=== PATIENT | female | born 1965 | race Caucasian/White ===

== ENCOUNTER → 2018-05-02 | Outpatient (CLI) | payer OTHER ==
[~2018-05-02] MED LIST: ALBUMIN HUMAN 25%, 25GM/100ML ONE; LIDOCAINE-MPF 1%, 5ML ONE
== END | disposition home or self-care (01) ==
LOC: RAD 07:48
PROVIDERS: ATTEND Internal Medicine
DX: K70.11 Alcoholic hepatitis with ascites (principal)
CPT/HCPCS: 49083; 87070; 87205; 89051; P9047

== ENCOUNTER 2019-12-02 07:15 | Inpatient (IN) | payer OTHER ==
[~2019-12-02] VITALS: Ht 165.1 cm; Wt 64.4 kg
[2019-12-02] MEDS ORDERED: SODIUM CHLORIDE FLUSH 10ML SYR IVF ONE (07:30)
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
[2019-12-02] MEDS ORDERED: ALPR2TAB2 PO (07:53)
[2019-12-02] MEDS ORDERED: METO2.5T PO (07:53)
[2019-12-02] MEDS ORDERED: NABU500T PO (07:53)
[2019-12-02] MEDS ORDERED: HYDR-826 PO (07:53)
[2019-12-02] MEDS ORDERED: FURO40TA6 PO (07:53)
[2019-12-02] MEDS ORDERED: FLUO20CA23 PO (07:53)
--- NOTE | 2019-12-02 08:21 | NUR ---
EKG DONE, LICENSED PESTICIDE APPLICATOR PLACED.
--- NOTE | 2019-12-02 08:26 | NUR ---
PT GOING TO CT AT THIS TIME.
[2019-12-02] MEDS ORDERED: CEFTRIAXONE PMX 1GM/50ML 50 ML IV ONE (08:30)
[2019-12-02 09:04] LABS: INTERNATIONAL NORMALIZED RATIO 1.16 (0.93-1.1)
[2019-12-02] MEDS ORDERED: LIDOCAINE 1%, 10ML ONE (09:18)
--- NOTE | 2019-12-02 09:26 | NUR ---
PT GOING TO IR AT THIS TIME.
[2019-12-02 09:29] LABS: BASOPHILS % (AUTO) 2 % (0-1); EOSINOPHILS % (AUTO) 3 % (1-7); LYMPHOCYTES % (AUTO) 15 % (22-44); MEAN CORPUSCULAR HEMOGLOBIN 25.3 pg (27.0-34.8); MEAN CORPUSCULAR HGB CONC 31.5 g/dL (32.4-35.8); MEAN PLATELET VOLUME 9.7 fL (7.4-10.4); MONOCYTES % (AUTO) 15 % (2-9); NEUTROPHILS % (AUTO) 66 % (42-75); PLATELET COUNT 88 x10^3/uL (130-400); RED BLOOD COUNT 3.85 x10^6/uL (3.82-5.3); RED CELL DISTRIBUTION WIDTH 18.3 % (9.6-15.2)
[2019-12-02 09:32] LABS: MD MORPH REVIEW ONLY
[2019-12-02 09:33] LABS: ANISOCYTOSIS 1+; HYPOCHROMIA 1+; OVALOCYTES 1+; POLYCHROMASIA 1+
[2019-12-02 09:34] LABS: <PLATELET ESTIMATE> DECREASED; <PLT MORPHOLOGY> NORMAL PLT MORPH
--- NOTE | 2019-12-02 09:44 | NUR ---
ABLE TO CALL GERARDO AND GET CONCENT FOR PROCEDURE OVER PHONE. CONSENT DOUBLE VERIFIED WITH DIVORCE LAWYER. CALLED IR TO INFORM THEM CONSENTED TO PROCEDURE
[2019-12-02 09:58] LABS: ANION GAP 8 mmol/L (5-15); CALCIUM 9.6 mg/dL (8.5-10.1); CHLORIDE 104 mmol/L (98-107); CREATININE 0.56 mg/dL (0.55-1.02)
[2019-12-02 09:59] LABS: ALANINE AMINOTRANSFERASE 24 U/L (12-78); ALBUMIN 2.8 g/dL (3.4-5.0)
[2019-12-02 10:01] LABS: ALKALINE PHOSPHATASE 140 U/L (45-117); BILIRUBIN,TOTAL 2.6 mg/dL (0.2-1.0)
[2019-12-02] MEDS ORDERED: ONDANSETRON 2MG/ML, 2ML ONE (10:51)
[2019-12-02] MEDS ORDERED: POTASSIUM CHLORIDE 40 MEQ in SODIUM CHLORIDE 0.9% 500 ML IV ONE ×2 (11:00→13:00)
--- NOTE | 2019-12-02 11:20 | NUR ---
ATTEMPTED TO STRAIGHT CATH PT WITH ONE PERSON ASSIST. UNABLE TO GET ANY URINE OUT.
[2019-12-02] MEDS: LACTULOSE 20 GM/30 ML UDC PO SCH (11:32)
--- NOTE | 2019-12-02 12:37 | NUR ---
ABLE TO ASSIST PT TO BEDSIDE COMMODE WITH REPEATED INSTRUCTION. PT ABLE TO VOID. URINE SAMPLE COLLECTED, SENT TO LAB. PT CONFUSES EASILY AND HAS HARD TIME COMPLETING MULTI STEP INSTRUCTIONS. PT NOW BACK IN BED RESTING WITH EYES CLOSED. BILAT BEDRAILS UP.
[2019-12-02] MEDS ORDERED: CEFTRIAXONE PMX 1GM/50ML 50 ML ONE (12:39)
[2019-12-02 12:41] LABS: MICROSCOPIC NOT IND
[2019-12-02] MEDS ORDERED: SODIUM CHLORIDE FLUSH 10ML SYR IVF PRN (13:00)
[2019-12-02 13:03] LABS: CELLS COUNTED 56
[2019-12-02] MEDS ORDERED: DOCUSATE 100 MG CAPSULE PO PRN (13:30)
[2019-12-02] MEDS ORDERED: FUROSEMIDE 20 MG/2 ML IV ONE (13:30)
[2019-12-02] MEDS ORDERED: LORazepam 2 MG/ML, 1ML IVPush PRN (13:30)
[2019-12-02] MEDS ORDERED: LORazepam 1MG TABLET PO PRN (13:30)
[2019-12-02 13:45] LABS: SALICYLATE LEVEL < 1.7 mg/dL (2.8-20.0)
[2019-12-02 13:51] VITALS: BP 95/58
[2019-12-02 14:11] VITALS: BP 95/58
[2019-12-02 14:13] LABS: AMPHETAMINE SCREEN, URINE Negative (Negative); BARBITURATE SCREEN, URINE Negative (Negative); BENZODIAZEPINE SCREEN, URINE Negative (Negative); CANNABINOID SCREEN, URINE Negative (Negative); COCAINE SCREEN, URINE Negative (Negative); METHADONE SCREEN, URINE Negative (Negative); OPIATE SCREEN, URINE Negative (Negative)
[2019-12-02] MEDS: LACTULOSE 10 GM/15 ML UDC PO SCH ×2 (16:55→20:59)
[2019-12-02] MEDS: THIAMINE 100MG TABLET PO/NG SCH (16:55)
[2019-12-02] MEDS: POTASSIUM CHLORIDE 20 MEQ TAB.ER.PRT PO SCH (18:20)
[2019-12-02 20:21] VITALS: BP 106/64
[2019-12-03 00:41] VITALS: BP 93/61
[2019-12-03 06:34] LABS: MEAN CORPUSCULAR HEMOGLOBIN 25.5 pg (27.0-34.8); MEAN CORPUSCULAR HGB CONC 31.8 g/dL (32.4-35.8); MEAN PLATELET VOLUME 9.9 fL (7.4-10.4); PLATELET COUNT 93 x10^3/uL (130-400); RED BLOOD COUNT 3.64 x10^6/uL (3.82-5.3); RED CELL DISTRIBUTION WIDTH 18.6 % (9.6-15.2)
[2019-12-03 06:43] LABS: ALANINE AMINOTRANSFERASE 22 U/L (12-78); ALBUMIN 2.6 g/dL (3.4-5.0); ANION GAP 6 mmol/L (5-15); CALCIUM 9.3 mg/dL (8.5-10.1); CHLORIDE 107 mmol/L (98-107); CREATININE 0.53 mg/dL (0.55-1.02)
[2019-12-03 06:46] LABS: ALKALINE PHOSPHATASE 124 U/L (45-117); BILIRUBIN,TOTAL 2.2 mg/dL (0.2-1.0); TOTAL PROTEIN 5.6 g/dL (6.4-8.2)
[2019-12-03] MEDS ORDERED: POTASSIUM PHOSPHATE 44 MEQ in SODIUM CHLORIDE 0.9% 500 ML IV ONE (07:00)
[2019-12-03 07:28] VITALS: BP 103/64
[2019-12-03] MEDS ORDERED: PANTOPRAZOLE 40 MG IV IVPush SCH (07:30)
[2019-12-03] MEDS: LACTULOSE 10 GM/15 ML UDC PO SCH ×3 (07:38→20:44)
[2019-12-03] MEDS: MULTIVITAMIN 1 TABLET PO SCH (07:39)
[2019-12-03] MEDS: FUROSEMIDE 40 MG TABLET PO SCH (07:39)
[2019-12-03] MEDS: LACTULOSE 20 GM/30 ML UDC PO SCH (07:39)
[2019-12-03] MEDS: THIAMINE 100MG TABLET PO/NG SCH (07:39)
[2019-12-03] MEDS: FOLIC ACID 1 MG TABLET PO SCH (07:39)
[2019-12-03] MEDS: FLUOXETINE HCL 20 MG CAPSULE PO SCH (07:39)
[2019-12-03] MEDS: METOLAZONE 2.5 MG TABLET PO SCH (07:39)
[2019-12-03] MEDS: POTASSIUM CHLORIDE 20 MEQ TAB.ER.PRT PO SCH (07:40)
[2019-12-03 07:53] LABS: MD YES
[2019-12-03 07:55] LABS: <PLATELET ESTIMATE> DECREASED; <PLT MORPHOLOGY> NORMAL PLT MORPH; ANISOCYTOSIS 1+; BASOS#(MANUAL) 0.13 x10^3/uL (0-0.1); BASOS% (MANUAL) 3 % (0-1); EOS#(MANUAL) 0.35 x10^3/uL (0.0-0.4); EOS% (MANUAL) 8 % (1-7); HYPOCHROMIA 1+; LYMPH#(MANUAL) 1.28 x10^3/uL (1-3.4); LYMPHS% (MANUAL) 29 % (22-44); MONOS#(MANUAL) 0.44 x10^3/uL (0.3-2.7); MONOS% (MANUAL) 10 % (2-9); OVALOCYTES 1+; POLYCHROMASIA 1+; SEGS% (MANUAL) 50 % (42-75)
[2019-12-03 12:55] VITALS: BP 109/68
[2019-12-03] MEDS: CEFTRIAXONE PMX 1GM/50ML 50 ML IV SCH (13:28)
[2019-12-03] MEDS ORDERED: POTASSIUM CHLORIDE 40 MEQ in SODIUM CHLORIDE 0.9% 500 ML IV ONE (14:00)
[2019-12-03] MEDS ORDERED: POTASSIUM CHLORIDE 20 MEQ TAB.ER.PRT PO SCH (17:00)
[2019-12-03 18:43] VITALS: BP 99/64
[2019-12-04 02:00] VITALS: BP 96/61
[2019-12-04 05:45] LABS: BASOPHILS % (AUTO) 2 % (0-1); EOSINOPHILS % (AUTO) 5 % (1-7); LYMPHOCYTES % (AUTO) 14 % (22-44); MEAN CORPUSCULAR HEMOGLOBIN 25.5 pg (27.0-34.8); MEAN PLATELET VOLUME 9.3 fL (7.4-10.4); MONOCYTES % (AUTO) 15 % (2-9); NEUTROPHILS % (AUTO) 64 % (42-75); PLATELET COUNT 94 x10^3/uL (130-400); RED BLOOD COUNT 3.88 x10^6/uL (3.82-5.3); RED CELL DISTRIBUTION WIDTH 18.9 % (9.6-15.2)
[2019-12-04 05:52] LABS: MD NO
[2019-12-04 05:57] LABS: CHLORIDE 107 mmol/L (98-107)
[2019-12-04] MEDS ORDERED: PANTOPRAZOLE 40 MG IV IVPush SCH (06:00)
[2019-12-04 06:03] LABS: ALANINE AMINOTRANSFERASE 23 U/L (12-78); ALBUMIN 2.7 g/dL (3.4-5.0); ALKALINE PHOSPHATASE 130 U/L (45-117); ANION GAP 7 mmol/L (5-15); BILIRUBIN,TOTAL 2.2 mg/dL (0.2-1.0); CALCIUM 9.2 mg/dL (8.5-10.1); CREATININE 0.68 mg/dL (0.55-1.02); TOTAL PROTEIN 5.7 g/dL (6.4-8.2)
[2019-12-04 06:33] VITALS: BP 109/73
[2019-12-04] MEDS ORDERED: POTASSIUM PHOSPHATE 44 MEQ in SODIUM CHLORIDE 0.9% 500 ML IV ONE (07:00)
[2019-12-04] MEDS ORDERED: MAGNESIUM SULFATE PMX 4GM/100M 100 ML IVPB ONE (07:00)
[2019-12-04] MEDS: POTASSIUM CHLORIDE 20 MEQ TAB.ER.PRT PO SCH ×2 (08:21→16:30)
[2019-12-04] MEDS: METOLAZONE 2.5 MG TABLET PO SCH (08:22)
[2019-12-04] MEDS: FLUOXETINE HCL 20 MG CAPSULE PO SCH (08:22)
[2019-12-04] MEDS: LACTULOSE 10 GM/15 ML UDC PO SCH ×3 (08:23→20:19)
[2019-12-04] MEDS: MULTIVITAMIN 1 TABLET PO SCH (08:23)
[2019-12-04] MEDS: FUROSEMIDE 40 MG TABLET PO SCH (08:23)
[2019-12-04] MEDS: THIAMINE 100MG TABLET PO/NG SCH (08:23)
[2019-12-04] MEDS: FOLIC ACID 1 MG TABLET PO SCH (08:23)
[2019-12-04 13:01] VITALS: BP 102/73
[2019-12-04] MEDS: CEFTRIAXONE PMX 1GM/50ML 50 ML IV SCH (13:43)
[2019-12-04 20:00] VITALS: BP 100/66
[2019-12-05 01:26] VITALS: BP 95/55
[2019-12-05 04:50] LABS: ALBUMIN 2.5 g/dL (3.4-5.0); CHLORIDE 106 mmol/L (98-107)
[2019-12-05 04:51] LABS: BASOPHILS % (AUTO) 3 % (0-1); EOSINOPHILS % (AUTO) 11 % (1-7); LYMPHOCYTES % (AUTO) 26 % (22-44); MEAN CORPUSCULAR HEMOGLOBIN 25.8 pg (27.0-34.8); MEAN CORPUSCULAR HGB CONC 32.2 g/dL (32.4-35.8); MEAN PLATELET VOLUME 9.9 fL (7.4-10.4); MONOCYTES % (AUTO) 15 % (2-9); NEUTROPHILS % (AUTO) 45 % (42-75); PLATELET COUNT 88 x10^3/uL (130-400); RED BLOOD COUNT 3.66 x10^6/uL (3.82-5.3); RED CELL DISTRIBUTION WIDTH 18.9 % (9.6-15.2)
[2019-12-05 04:55] LABS: MD NO
[2019-12-05 04:56] LABS: ALANINE AMINOTRANSFERASE 23 U/L (12-78); ALKALINE PHOSPHATASE 126 U/L (45-117); ANION GAP 7 mmol/L (5-15); BILIRUBIN,TOTAL 1.6 mg/dL (0.2-1.0); CREATININE 0.61 mg/dL (0.55-1.02); TOTAL PROTEIN 5.5 g/dL (6.4-8.2)
[2019-12-05] MEDS: PANTOPRAZOLE 40MG TABLET PO SCH (06:12)
[2019-12-05 07:00] VITALS: BP 98/61
[2019-12-05] MEDS: LACTULOSE 10 GM/15 ML UDC PO SCH ×3 (08:34→20:48)
[2019-12-05] MEDS: POTASSIUM CHLORIDE 20 MEQ TAB.ER.PRT PO SCH ×3 (08:35→20:49)
[2019-12-05] MEDS: FLUOXETINE HCL 20 MG CAPSULE PO SCH (08:35)
[2019-12-05] MEDS: MULTIVITAMIN 1 TABLET PO SCH (08:35)
[2019-12-05] MEDS: METOLAZONE 2.5 MG TABLET PO SCH (08:35)
[2019-12-05] MEDS: THIAMINE 100MG TABLET PO/NG SCH (08:35)
[2019-12-05] MEDS: FUROSEMIDE 40 MG TABLET PO SCH (08:35)
[2019-12-05] MEDS: FOLIC ACID 1 MG TABLET PO SCH (08:35)
[2019-12-05 12:16] VITALS: BP 99/68
[2019-12-05] MEDS ORDERED: MAGNESIUM SULFATE PMX 2GM/50ML 50 ML IV ONE (15:00)
[2019-12-05 19:06] VITALS: BP 100/63
[2019-12-06 00:55] VITALS: BP 117/60
[2019-12-06 04:27] LABS: ANION GAP 5 mmol/L (5-15); CALCIUM 8.5 mg/dL (8.5-10.1); CHLORIDE 104 mmol/L (98-107); CREATININE 0.55 mg/dL (0.55-1.02)
[2019-12-06] MEDS: PANTOPRAZOLE 40MG TABLET PO SCH (05:31)
[2019-12-06 07:10] VITALS: BP 101/56
[2019-12-06] MEDS ORDERED: POTA20TA6 PO (07:42)
[2019-12-06] MEDS ORDERED: LACT10SO24 PO (07:42)
[2019-12-06] MEDS: POTASSIUM CHLORIDE 20 MEQ TAB.ER.PRT PO SCH (07:58)
[2019-12-06] MEDS: LACTULOSE 10 GM/15 ML UDC PO SCH (07:58)
[2019-12-06] MEDS: MULTIVITAMIN 1 TABLET PO SCH (07:59)
[2019-12-06] MEDS: FLUOXETINE HCL 20 MG CAPSULE PO SCH (07:59)
[2019-12-06] MEDS: THIAMINE 100MG TABLET PO/NG SCH (07:59)
[2019-12-06] MEDS: FOLIC ACID 1 MG TABLET PO SCH (07:59)
[2019-12-06] MEDS: FUROSEMIDE 40 MG TABLET PO SCH (07:59)
[2019-12-06 12:48] VITALS: BP 104/66
== END 2019-12-06 15:09 | disposition home or self-care (01) | DRG 432 ==
LOC: ED 08:22 → 4WST 12:03
PROVIDERS: ADMIT Hospitalist; ATTEND Hospitalist
PROC: 0W9G3ZZ Drainage of Peritoneal Cavity, Percutaneous Approach (ICD-10-PCS; principal; 2019-12-02)
DX: K70.40 Alcoholic hepatic failure without coma (principal); E43 Unspecified severe protein-calorie malnutrition; G93.41 Metabolic encephalopathy; J18.9 Pneumonia, unspecified organism; D64.9 Anemia, unspecified; D69.6 Thrombocytopenia, unspecified; E83.39 Other disorders of phosphorus metabolism; E83.42 Hypomagnesemia; E87.6 Hypokalemia; F10.10 Alcohol abuse, uncomplicated; F32.9 Major depressive disorder, single episode, unspecified; F41.9 Anxiety disorder, unspecified; K70.31 Alcoholic cirrhosis of liver with ascites; Y90.9 Presence of alcohol in blood, level not specified; Z79.899 Other long term (current) drug therapy; Z68.23 Body mass index [BMI] 23.0-23.9, adult
CPT/HCPCS: 36415; 82042; 84145; 89051; 96365; 99285; J3490; 49083; 70450; 71045; 80048; 80053; 80307; 81003; 82140; 83605; 83615; 83690; 83735; 84100; 84132; 84443; 85025; 85610; 87040; 87070; 87205; 93005; G0378; J0696; J3480; C9113; J1940; J3475; J7030; J7040; Q0177

== ENCOUNTER 2020-02-24 05:56 | Emergency (ER) | payer OTHER, MEDICARE ==
[~2020-02-24] VITALS: Ht 165.1 cm; Wt 71.8 kg
[~2020-02-24 05:56] MED LIST changes: -ALBUMIN HUMAN 25%, 25GM/100ML ONE; +ALPR2TAB2 PO; +FLUO20CA23 PO; +FURO40TA6 PO; +HYDR-826 PO; +LACT10SO24 PO; -LIDOCAINE-MPF 1%, 5ML ONE; +METO2.5T PO; +NABU500T7 PO; +POTA20TA6 PO
--- NOTE | 2020-02-24 06:08 | NUR ---
pt bib ems. pt has history of etoh and liver failure. pt have very prominent ascites and is having some diffiulty breathing because of that. pt sitting upright in [facility], states having abdominal and back pain 9/10. placed on all monitors, awaiting erp eval
[2020-02-24 06:44] LABS: MEAN CORPUSCULAR HEMOGLOBIN 21.3 pg (27.0-34.8); MEAN CORPUSCULAR HGB CONC 30.3 g/dL (32.4-35.8); PLATELET COUNT 94 x10^3/uL (130-400); RED CELL DISTRIBUTION WIDTH 22.2 % (9.6-15.2)
[2020-02-24 06:54] LABS: ALANINE AMINOTRANSFERASE 23 U/L (12-78); ALBUMIN 2.8 g/dL (3.4-5.0); ANION GAP 4 mmol/L (5-15); CALCIUM 9.2 mg/dL (8.5-10.1); CHLORIDE 110 mmol/L (98-107)
--- NOTE | 2020-02-24 06:56 | NUR ---
report given to melida colbert
[2020-02-24 06:57] LABS: ALKALINE PHOSPHATASE 188 U/L (45-117); BILIRUBIN,TOTAL 1.3 mg/dL (0.2-1.0); CREATININE 0.61 mg/dL (0.55-1.02); TOTAL PROTEIN 6.4 g/dL (6.4-8.2)
[2020-02-24] MEDS ORDERED: ALBUMIN HUMAN 25% 100 ML IV ONE (07:00)
[2020-02-24] MEDS ORDERED: SODIUM CHLORIDE FLUSH 10ML SYR IVF ONE (07:00)
--- NOTE | 2020-02-24 07:00 | NUR ---
assumed care of pt. report from Edith BURGOS pt here for abd swelling/distention. pt has +hx of liver failure and has had paracetesis previosuly. denies ETOH. resting in position of comfort. no family at bedside
[2020-02-24] MEDS ORDERED: LIDOCAINE 1%, 10ML ONE (07:02)
[2020-02-24 07:16] LABS: MD YES
[2020-02-24 07:17] LABS: BAND#(MANUAL) 0.06 x10^3/uL; BANDS%(MANUAL) 1 % (0-7); BASOS#(MANUAL) 0.13 x10^3/uL (0-0.1); BASOS% (MANUAL) 2 % (0-1); EOS#(MANUAL) 0.19 x10^3/uL (0.0-0.4); EOS% (MANUAL) 3 % (1-7); LYMPH#(MANUAL) 1.32 x10^3/uL (1-3.4); LYMPHS% (MANUAL) 21 % (22-44); MONOS#(MANUAL) 0.57 x10^3/uL (0.3-2.7); MONOS% (MANUAL) 9 % (2-9); SEG#(MANUAL) 4.03 x10^3/uL (1.8-6.8); SEGS% (MANUAL) 64 % (42-75)
[2020-02-24 07:18] LABS: ANISOCYTOSIS 1+; HYPOCHROMIA 1+; MICROCYTOSIS 1+; OVALOCYTES 1+; POLYCHROMASIA 1+; SPHEROCYTES 1+; TEAR DROPS 1+
[2020-02-24 07:19] LABS: <PLATELET ESTIMATE> DECREASED; LARGE PLATELETS 1+
--- NOTE | 2020-02-24 07:30 | NUR ---
US tech at bedside for setup of paracentesis
--- NOTE | 2020-02-24 08:34 | NUR ---
bedsied paracentesis complete. 8L removed
--- NOTE | 2020-02-24 09:15 | NUR ---
albumin infusing. pt positioining for comfort. PO fluids given per pt request. warm blankets given
--- NOTE | 2020-02-24 09:44 | NUR ---
infusion continues. pt resting in position of comfort with eyes closed. no apparent distress
[2020-02-24 11:03] VITALS: BP 102/63
== END 2020-02-24 11:06 | disposition home or self-care (01) ==
LOC: ED 09:00
DX: K70.31 Alcoholic cirrhosis of liver with ascites (principal); D63.8 Anemia in other chronic diseases classified elsewhere; R00.0 Tachycardia, unspecified
CPT/HCPCS: 36415; 49083; 80053; 83690; 85025; 96365; 99285; J3490; P9047

== ENCOUNTER 2020-03-13 17:29 | Inpatient (IN) | payer OTHER ==
[~2020-03-13] VITALS: Ht 167.6 cm; Wt 70.7 kg
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
[2020-03-13] MEDS ORDERED: SODIUM CHLORIDE FLUSH 10ML SYR IVF ONE (18:00)
[2020-03-13] MEDS ORDERED: MORPHINE SULFATE 4 MG/ML, 1ML IVPush PRN (18:00)
[2020-03-13] MEDS ORDERED: MORPHINE SULFATE 4 MG/ML, 1ML ONE (18:08)
[2020-03-13 18:33] LABS: BASOPHILS % (AUTO) 2 % (0-1); EOSINOPHILS % (AUTO) 2 % (1-7); LYMPHOCYTES % (AUTO) 28 % (22-44); MEAN CORPUSCULAR HEMOGLOBIN 20.6 pg (27.0-34.8); MEAN PLATELET VOLUME 8.9 fL (7.4-10.4); MONOCYTES % (AUTO) 12 % (2-9); NEUTROPHILS % (AUTO) 57 % (42-75); PLATELET COUNT 121 x10^3/uL (130-400); RED BLOOD COUNT 3.84 x10^6/uL (3.82-5.3); RED CELL DISTRIBUTION WIDTH 22.1 % (9.6-15.2)
[2020-03-13 18:40] LABS: ALANINE AMINOTRANSFERASE 27 U/L (12-78); ALBUMIN 2.7 g/dL (3.4-5.0); ANION GAP 5 mmol/L (5-15); CALCIUM 9.2 mg/dL (8.5-10.1); CHLORIDE 107 mmol/L (98-107); CREATININE 0.71 mg/dL (0.55-1.02); INTERNATIONAL NORMALIZED RATIO 1.25 (0.93-1.1); PROTHROMBIN TIME 13.2 Seconds (9.6-11.5)
[2020-03-13 18:43] LABS: ALKALINE PHOSPHATASE 176 U/L (45-117); BILIRUBIN,TOTAL 1.3 mg/dL (0.2-1.0); TOTAL PROTEIN 6.2 g/dL (6.4-8.2)
[2020-03-13] MEDS ORDERED: LIDOCAINE-MPF 1%, 5ML ONE (18:49)
[2020-03-13 18:59] LABS: MD MORPH REVIEW ONLY
[2020-03-13 19:00] LABS: ANISOCYTOSIS 1+; HYPOCHROMIA 2+; MICROCYTOSIS 2+
--- NOTE | 2020-03-13 19:00 | NUR ---
patient and ER gurney not in room upon first assessment after report. patient's belongings remain in room in personal belongings bag
[2020-03-13 19:01] LABS: OVALOCYTES 1+; POLYCHROMASIA 1+; TEAR DROPS 1+
[2020-03-13 19:02] LABS: <PLATELET ESTIMATE> DECREASED; LARGE PLATELETS 1+
[2020-03-13] MEDS ORDERED: ALBUMIN HUMAN 25% 100 ML IV ONE (20:30)
--- NOTE | 2020-03-13 21:00 | NUR ---
resting in bed. back from paracentesis. states her breathing is better. call sebastian in reach. will continue to monitor.
--- NOTE | 2020-03-13 21:50 | NUR ---
patient resting in bed in NAD. started titrating O2 down to wean off. IV albumin started. Pharmacy called to ensure i did not need filter tubing with this. patient requesting warm blankets and juice. warm blanket provided. will ask if patient able to have PO fluids. will continue to monitor. puncture site on R lateral abdomen CDI with no signs of bleeding or concern. abdomen remains enlarged but less firm/distended. BLE +3 edema. No open wounds noted at this time. call sebastian in reach
--- NOTE | 2020-03-13 22:09 | NUR ---
report given to suleiman BURGOS
--- NOTE | 2020-03-13 22:15 | NUR ---
patient states she does not know what she takes for medications at home. i have obtained her , delmis's, number and will attempt to call to complete med rec
[2020-03-13] MEDS ORDERED: SPIR25TA5 PO (22:26)
[2020-03-13] MEDS ORDERED: RIFA550T4 PO (22:26)
--- NOTE | 2020-03-13 23:02 | NUR ---
patient given water and cranberry juice. waiting for transport up to inpatient room
[2020-03-13 23:39] VITALS: BP 89/51
[2020-03-13 23:42] VITALS: BP 79/52
[2020-03-13 23:49] VITALS: BP 83/53
[2020-03-14] VITALS (13 sets, daily range): BP systolic 77–111; BP diastolic 46–70
[2020-03-14] MEDS ORDERED: MELATONIN 5 MG TABLET PO PRN (00:30)
[2020-03-14] MEDS ORDERED: ALBUMIN HUMAN 25% 100 ML IV ONE (00:30)
[2020-03-14] MEDS ORDERED: LIDODERM 5% PATCH TD PRN (00:30)
[2020-03-14] MEDS ORDERED: DOCUSATE 100 MG CAPSULE PO PRN (00:30)
[2020-03-14] MEDS ORDERED: KETOROLAC 30 MG/1 ML IVPush ONE (01:00)
[2020-03-14] MEDS ORDERED: LACTATED RINGERS 500 ML IVBOLUS ONE (03:30)
[2020-03-14 05:38] LABS: MEAN CORPUSCULAR HGB CONC 30.7 g/dL (32.4-35.8); PLATELET COUNT 96 x10^3/uL (130-400); RED BLOOD COUNT 3.06 x10^6/uL (3.82-5.3); RED CELL DISTRIBUTION WIDTH 22.3 % (9.6-15.2)
[2020-03-14 05:46] LABS: ANION GAP 5 mmol/L (5-15); CALCIUM 8.6 mg/dL (8.5-10.1); CHLORIDE 110 mmol/L (98-107); CREATININE 0.72 mg/dL (0.55-1.02)
[2020-03-14 06:10] LABS: MD YES
[2020-03-14 06:12] LABS: ANISOCYTOSIS 1+; BAND#(MANUAL) 0.06 x10^3/uL; BANDS%(MANUAL) 1 % (0-7); BASOS#(MANUAL) 0.06 x10^3/uL (0-0.1); BASOS% (MANUAL) 1 % (0-1); EOS#(MANUAL) 0.06 x10^3/uL (0.0-0.4); EOS% (MANUAL) 1 % (1-7); HYPOCHROMIA 2+; LYMPH#(MANUAL) 1.26 x10^3/uL (1-3.4); LYMPHS% (MANUAL) 20 % (22-44); MICROCYTOSIS 2+; MONOS% (MANUAL) 8 % (2-9); POLYCHROMASIA 1+; SEG#(MANUAL) 4.35 x10^3/uL (1.8-6.8); SEGS% (MANUAL) 69 % (42-75)
[2020-03-14 06:13] LABS: OVALOCYTES 1+; TEAR DROPS 1+
[2020-03-14 06:14] LABS: <PLATELET ESTIMATE> DECREASED; LARGE PLATELETS 1+
[2020-03-14] MEDS ORDERED: ALBUMIN HUMAN 5% 500 ML IV ONE (06:30)
[2020-03-14] MEDS ORDERED: FUROSEMIDE 40 MG TABLET PO SCH (09:00)
[2020-03-14] MEDS: NABUMETONE 500 MG TABLET PO SCH ×2 (09:16→21:28)
[2020-03-14] MEDS: LACTULOSE 20 GM/30 ML UDC PO SCH ×5 (09:17→21:33)
[2020-03-14] MEDS: METOLAZONE 2.5 MG TABLET PO SCH (09:17)
[2020-03-14] MEDS: RIFAXIMIN 550 MG TABLET PO SCH ×2 (09:17→21:28)
[2020-03-14] MEDS: SPIRONOLACTONE 25 MG TABLET PO SCH (09:17)
[2020-03-14] MEDS: POTASSIUM CHLORIDE 20 MEQ TAB.ER.PRT PO SCH (09:17)
[2020-03-14] MEDS: IRON SUCROSE COMPLEX 100MG/5ML IV SCH (09:33)
[2020-03-15] VITALS (7 sets, daily range): BP systolic 79–109; BP diastolic 50–67
[2020-03-15 05:53] LABS: BASOPHILS % (AUTO) 2 % (0-1); EOSINOPHILS % (AUTO) 4 % (1-7); LYMPHOCYTES % (AUTO) 23 % (22-44); MEAN CORPUSCULAR HEMOGLOBIN 22.1 pg (27.0-34.8); MEAN CORPUSCULAR HGB CONC 30.9 g/dL (32.4-35.8); MEAN PLATELET VOLUME 8.9 fL (7.4-10.4); MONOCYTES % (AUTO) 13 % (2-9); NEUTROPHILS % (AUTO) 58 % (42-75); PLATELET COUNT 84 x10^3/uL (130-400); RED BLOOD COUNT 3.32 x10^6/uL (3.82-5.3); RED CELL DISTRIBUTION WIDTH 24.2 % (9.6-15.2)
[2020-03-15 06:05] LABS: ALBUMIN 2.6 g/dL (3.4-5.0); ANION GAP 4 mmol/L (5-15); CALCIUM 8.7 mg/dL (8.5-10.1); CHLORIDE 108 mmol/L (98-107)
[2020-03-15 06:10] LABS: ALANINE AMINOTRANSFERASE 17 U/L (12-78); ALKALINE PHOSPHATASE 121 U/L (45-117); BILIRUBIN,TOTAL 1.8 mg/dL (0.2-1.0); CREATININE 0.48 mg/dL (0.55-1.02); TOTAL PROTEIN 4.8 g/dL (6.4-8.2)
[2020-03-15 06:53] LABS: MD SCAN
[2020-03-15] MEDS ORDERED: POTASSIUM CHLORIDE 20 MEQ TAB.ER.PRT PO ONE (08:00)
[2020-03-15] MEDS: IRON SUCROSE COMPLEX 100MG/5ML IV SCH (08:21)
[2020-03-15] MEDS: METOLAZONE 2.5 MG TABLET PO SCH (08:21)
[2020-03-15] MEDS: RIFAXIMIN 550 MG TABLET PO SCH ×2 (08:22→22:08)
[2020-03-15] MEDS: LACTULOSE 20 GM/30 ML UDC PO SCH ×3 (08:22→22:08)
[2020-03-15] MEDS: NABUMETONE 500 MG TABLET PO SCH ×2 (08:22→22:08)
[2020-03-15] MEDS: POTASSIUM CHLORIDE 20 MEQ TAB.ER.PRT PO SCH (08:22)
[2020-03-15] MEDS: SPIRONOLACTONE 25 MG TABLET PO SCH (08:30)
[2020-03-15] MEDS ORDERED: CHLORHEXIDINE 15 ML UDC MM ONE (15:00)
[2020-03-15 18:19] LABS: OCCULT BLOOD NEGATIVE (NEGATIVE)
[2020-03-16 01:19] VITALS: BP 96/52
[2020-03-16 01:59] VITALS: BP 93/63
[2020-03-16 06:23] LABS: INTERNATIONAL NORMALIZED RATIO 1.32 (0.93-1.1)
[2020-03-16 06:25] LABS: BASOPHILS % (AUTO) 3 % (0-1); EOSINOPHILS % (AUTO) 5 % (1-7); LYMPHOCYTES % (AUTO) 22 % (22-44); MEAN CORPUSCULAR HEMOGLOBIN 21.9 pg (27.0-34.8); MEAN CORPUSCULAR HGB CONC 30.3 g/dL (32.4-35.8); MEAN PLATELET VOLUME 8.9 fL (7.4-10.4); MONOCYTES % (AUTO) 12 % (2-9); NEUTROPHILS % (AUTO) 58 % (42-75); PLATELET COUNT 86 x10^3/uL (130-400); RED BLOOD COUNT 3.57 x10^6/uL (3.82-5.3); RED CELL DISTRIBUTION WIDTH 24.3 % (9.6-15.2)
[2020-03-16 06:26] LABS: ALBUMIN 2.6 g/dL (3.4-5.0); CHLORIDE 109 mmol/L (98-107)
[2020-03-16 06:37] LABS: ANION GAP 6 mmol/L (5-15); CALCIUM 8.1 mg/dL (8.5-10.1); CREATININE 0.48 mg/dL (0.55-1.02)
[2020-03-16 06:38] LABS: ALANINE AMINOTRANSFERASE 18 U/L (12-78); ALKALINE PHOSPHATASE 130 U/L (45-117); BILIRUBIN,TOTAL 1.8 mg/dL (0.2-1.0); TOTAL PROTEIN 4.8 g/dL (6.4-8.2)
[2020-03-16 07:05] LABS: MD SCAN
[2020-03-16] MEDS: RIFAXIMIN 550 MG TABLET PO SCH ×2 (08:12→21:39)
[2020-03-16] MEDS: POTASSIUM CHLORIDE 20 MEQ TAB.ER.PRT PO SCH (08:12)
[2020-03-16] MEDS: METOLAZONE 2.5 MG TABLET PO SCH (08:12)
[2020-03-16] MEDS: NABUMETONE 500 MG TABLET PO SCH ×2 (08:12→21:39)
[2020-03-16] MEDS: LACTULOSE 20 GM/30 ML UDC PO SCH ×2 (08:12→16:49)
[2020-03-16 08:17] VITALS: BP 89/63
[2020-03-16] MEDS: IRON SUCROSE COMPLEX 100MG/5ML IV SCH (08:17)
[2020-03-16] MEDS ORDERED: POTASSIUM CHLORIDE 40 MEQ in SODIUM CHLORIDE 0.9% 500 ML IV ONE (10:00)
[2020-03-16] MEDS ORDERED: CHLORHEXIDINE 15 ML UDC ONE (13:41)
[2020-03-16 13:49] VITALS: BP 112/68
[2020-03-16] MEDS ORDERED: SUCCINYLCHOLINE 20 MG/ML, 10ML ONE (14:36)
[2020-03-16] MEDS ORDERED: SUGAMMADEX 200 MG/2 ML IVPush ONE (14:36)
[2020-03-16] MEDS ORDERED: PROPOFOL 10 MG/ML, 20ML ONE (14:36)
[2020-03-16] MEDS ORDERED: ROCURONIUM 10 MG/ML,10ML ONE (14:36)
[2020-03-16] MEDS ORDERED: ONDANSETRON 2MG/ML, 2ML IVPush PRN (15:30)
[2020-03-16] MEDS ORDERED: FENTANYL PF 100 MCG/2ML IV PRN (15:30)
[2020-03-16] MEDS ORDERED: HYDROmorphone 1 MG/ML, 1ML INJ IVPush PRN (15:30)
[2020-03-16] MEDS ORDERED: FERROUS SULFATE 325 MG TABLET ONE (16:46)
[2020-03-16] MEDS ORDERED: LACTULOSE 20 GM/30 ML UDC ONE (16:46)
[2020-03-16] MEDS ORDERED: FERROUS SULFATE 325 MG TABLET PO SCH (17:00)
[2020-03-16 18:58] VITALS: BP 108/69
[2020-03-16] MEDS ORDERED: DOCUSATE 100 MG CAPSULE PO PRN (22:00)
[2020-03-17 00:18] VITALS: BP 106/65
[2020-03-17] MEDS ORDERED: LIDODERM 5% PATCH TD PRN (00:34)
[2020-03-17 06:54] VITALS: BP 100/62
[2020-03-17] MEDS: IRON SUCROSE COMPLEX 100MG/5ML IV SCH (07:28)
[2020-03-17] MEDS: FERROUS SULFATE 325 MG TABLET PO SCH ×2 (07:29→17:21)
[2020-03-17] MEDS: NABUMETONE 500 MG TABLET PO SCH ×2 (07:29→21:04)
[2020-03-17] MEDS: LACTULOSE 20 GM/30 ML UDC PO SCH ×3 (07:30→21:04)
[2020-03-17] MEDS: RIFAXIMIN 550 MG TABLET PO SCH ×2 (07:33→21:03)
[2020-03-17] MEDS ORDERED: METOLAZONE 2.5 MG TABLET PO SCH (09:00)
[2020-03-17] MEDS ORDERED: POTASSIUM CHLORIDE 20 MEQ TAB.ER.PRT PO SCH (09:00)
[2020-03-17 15:16] VITALS: BP 109/71
[2020-03-17] MEDS ORDERED: ALBUMIN HUMAN 25% 100 ML IV PRN (18:00)
[2020-03-17 20:42] VITALS: BP 110/72
[2020-03-18 02:19] VITALS: BP 95/58
[2020-03-18 05:26] LABS: BASOPHILS % (AUTO) 2 % (0-1); EOSINOPHILS % (AUTO) 5 % (1-7); LYMPHOCYTES % (AUTO) 25 % (22-44); MEAN CORPUSCULAR HEMOGLOBIN 22.7 pg (27.0-34.8); MONOCYTES % (AUTO) 11 % (2-9); NEUTROPHILS % (AUTO) 58 % (42-75); PLATELET COUNT 84 x10^3/uL (130-400); RED BLOOD COUNT 3.76 x10^6/uL (3.82-5.3); RED CELL DISTRIBUTION WIDTH 25.3 % (9.6-15.2)
[2020-03-18 05:32] LABS: INTERNATIONAL NORMALIZED RATIO 1.26 (0.93-1.1); PROTHROMBIN TIME 13.4 Seconds (9.6-11.5)
[2020-03-18 05:33] LABS: CHLORIDE 110 mmol/L (98-107)
[2020-03-18 05:51] LABS: ALANINE AMINOTRANSFERASE 22 U/L (12-78); ALBUMIN 2.7 g/dL (3.4-5.0); ALKALINE PHOSPHATASE 149 U/L (45-117); ANION GAP 4 mmol/L (5-15); BILIRUBIN,TOTAL 1.7 mg/dL (0.2-1.0); CALCIUM 8.8 mg/dL (8.5-10.1); CREATININE 0.54 mg/dL (0.55-1.02); TOTAL PROTEIN 5.2 g/dL (6.4-8.2)
[2020-03-18 05:57] LABS: ANISOCYTOSIS 1+; HYPOCHROMIA 2+; MD MORPH REVIEW ONLY; MICROCYTOSIS 2+; OVALOCYTES 1+; POLYCHROMASIA 1+
[2020-03-18 05:58] LABS: <PLATELET ESTIMATE> DECREASED; <PLT MORPHOLOGY> NORMAL PLT MORPH
[2020-03-18 07:41] VITALS: BP 92/61
[2020-03-18] MEDS: LACTULOSE 20 GM/30 ML UDC PO SCH ×3 (08:32→20:55)
[2020-03-18] MEDS: NABUMETONE 500 MG TABLET PO SCH ×2 (08:32→20:55)
[2020-03-18] MEDS: RIFAXIMIN 550 MG TABLET PO SCH ×2 (08:32→20:55)
[2020-03-18] MEDS: IRON SUCROSE COMPLEX 100MG/5ML IV SCH (08:32)
[2020-03-18] MEDS: FERROUS SULFATE 325 MG TABLET PO SCH ×2 (08:32→16:13)
[2020-03-18] MEDS ORDERED: LIDOCAINE 1%, 10ML ONE (13:30)
[2020-03-18 13:44] VITALS: BP 99/61
[2020-03-18] MEDS ORDERED: POTASSIUM CHLORIDE 20 MEQ TAB.ER.PRT PO ONE (18:00)
[2020-03-18] MEDS: ALBUMIN HUMAN 25% 100 ML IV SCH ×2 (18:17→23:00)
[2020-03-18 20:31] VITALS: BP 133/77
[2020-03-18] MEDS: SPIRONOLACTONE 50 MG TABLET PO SCH (20:56)
[2020-03-19 01:12] VITALS: BP 113/65
[2020-03-19 05:03] LABS: MEAN CORPUSCULAR HEMOGLOBIN 23.4 pg (27.0-34.8); MEAN CORPUSCULAR HGB CONC 31.6 g/dL (32.4-35.8); MEAN PLATELET VOLUME 9.8 fL (7.4-10.4); PLATELET COUNT 71 x10^3/uL (130-400); RED BLOOD COUNT 3.44 x10^6/uL (3.82-5.3); RED CELL DISTRIBUTION WIDTH 25.9 % (9.6-15.2)
[2020-03-19 05:08] LABS: ALANINE AMINOTRANSFERASE 20 U/L (12-78); ALBUMIN 3.2 g/dL (3.4-5.0); ANION GAP 3 mmol/L (5-15); CALCIUM 8.8 mg/dL (8.5-10.1); CHLORIDE 111 mmol/L (98-107)
[2020-03-19 05:11] LABS: ALKALINE PHOSPHATASE 128 U/L (45-117); BILIRUBIN,TOTAL 1.6 mg/dL (0.2-1.0); CREATININE 0.42 mg/dL (0.55-1.02); TOTAL PROTEIN 5.3 g/dL (6.4-8.2)
[2020-03-19 05:52] LABS: MD YES
[2020-03-19 05:54] LABS: BASOS#(MANUAL) 0.06 x10^3/uL (0-0.1); BASOS% (MANUAL) 1 % (0-1); EOS#(MANUAL) 0.31 x10^3/uL (0.0-0.4); EOS% (MANUAL) 5 % (1-7); LYMPHS% (MANUAL) 21 % (22-44); MONOS% (MANUAL) 8 % (2-9); SEG#(MANUAL) 4.03 x10^3/uL (1.8-6.8); SEGS% (MANUAL) 65 % (42-75)
[2020-03-19 05:55] LABS: ANISOCYTOSIS 2+; HYPOCHROMIA 2+; MICROCYTOSIS 2+; POLYCHROMASIA 1+; TEAR DROPS 1+
[2020-03-19 05:56] LABS: <PLATELET ESTIMATE> DECREASED; <PLT MORPHOLOGY> NORMAL PLT MORPH; OVALOCYTES 1+
[2020-03-19 07:55] VITALS: BP 102/70
[2020-03-19] MEDS: FUROSEMIDE 40 MG TABLET PO SCH (09:02)
[2020-03-19] MEDS: LACTULOSE 20 GM/30 ML UDC PO SCH ×3 (09:02→20:52)
[2020-03-19] MEDS: RIFAXIMIN 550 MG TABLET PO SCH ×2 (09:02→20:52)
[2020-03-19] MEDS: NABUMETONE 500 MG TABLET PO SCH ×2 (09:02→20:52)
[2020-03-19] MEDS: FERROUS SULFATE 325 MG TABLET PO SCH ×2 (09:02→17:42)
[2020-03-19] MEDS: IRON SUCROSE COMPLEX 100MG/5ML IV SCH (09:02)
[2020-03-19] MEDS: SPIRONOLACTONE 50 MG TABLET PO SCH ×2 (09:02→20:52)
[2020-03-19 13:34] VITALS: BP 101/64
[2020-03-19 20:16] VITALS: BP 112/75
[2020-03-20 02:38] VITALS: BP 102/62
[2020-03-20 06:34] LABS: ANION GAP 6 mmol/L (5-15); CALCIUM 8.8 mg/dL (8.5-10.1); CHLORIDE 109 mmol/L (98-107)
[2020-03-20 06:35] LABS: CREATININE 0.53 mg/dL (0.55-1.02)
[2020-03-20 06:37] LABS: BASOPHILS % (AUTO) 2 % (0-1); EOSINOPHILS % (AUTO) 4 % (1-7); LYMPHOCYTES % (AUTO) 20 % (22-44); MEAN CORPUSCULAR HEMOGLOBIN 23.8 pg (27.0-34.8); MEAN CORPUSCULAR HGB CONC 31.2 g/dL (32.4-35.8); MEAN PLATELET VOLUME 9.6 fL (7.4-10.4); MONOCYTES % (AUTO) 11 % (2-9); NEUTROPHILS % (AUTO) 63 % (42-75); PLATELET COUNT 84 x10^3/uL (130-400); RED BLOOD COUNT 3.58 x10^6/uL (3.82-5.3); RED CELL DISTRIBUTION WIDTH 29.5 % (9.6-15.2)
[2020-03-20 07:19] LABS: MD MORPH REVIEW ONLY
[2020-03-20 07:20] LABS: ANISOCYTOSIS 2+
[2020-03-20 07:21] LABS: ECHINOCYTES 1+; HYPOCHROMIA 2+; MICROCYTOSIS 2+; OVALOCYTES 1+; POLYCHROMASIA 1+; TEAR DROPS 1+
[2020-03-20 07:22] LABS: <PLATELET ESTIMATE> DECREASED; <PLT MORPHOLOGY> NORMAL PLT MORPH
[2020-03-20 07:29] VITALS: BP 102/64
[2020-03-20] MEDS ORDERED: POTASSIUM PHOSPHATE 22 MEQ in SODIUM CHLORIDE 0.9% 500 ML IV ONE (08:30)
[2020-03-20] MEDS: LACTULOSE 20 GM/30 ML UDC PO SCH ×3 (09:16→20:50)
[2020-03-20] MEDS: FERROUS SULFATE 325 MG TABLET PO SCH ×2 (09:16→16:45)
[2020-03-20] MEDS: SPIRONOLACTONE 50 MG TABLET PO SCH ×2 (09:16→20:50)
[2020-03-20] MEDS: RIFAXIMIN 550 MG TABLET PO SCH ×2 (09:16→20:49)
[2020-03-20] MEDS: NABUMETONE 500 MG TABLET PO SCH ×2 (09:16→20:51)
[2020-03-20] MEDS: IRON SUCROSE COMPLEX 100MG/5ML IV SCH (09:16)
[2020-03-20] MEDS: FUROSEMIDE 40 MG TABLET PO SCH (09:17)
[2020-03-20 13:27] VITALS: BP 103/69
[2020-03-20 19:53] VITALS: BP 114/72
[2020-03-21] VITALS (8 sets, daily range): BP systolic 97–105; BP diastolic 60–68
[2020-03-21 05:11] LABS: ANION GAP 4 mmol/L (5-15); CALCIUM 8.9 mg/dL (8.5-10.1); CHLORIDE 108 mmol/L (98-107); CREATININE 0.43 mg/dL (0.55-1.02)
[2020-03-21 05:36] LABS: BASOPHILS % (AUTO) 2 % (0-1); EOSINOPHILS % (AUTO) 5 % (1-7); LYMPHOCYTES % (AUTO) 20 % (22-44); MEAN CORPUSCULAR HEMOGLOBIN 24.2 pg (27.0-34.8); MEAN CORPUSCULAR HGB CONC 30.9 g/dL (32.4-35.8); MEAN PLATELET VOLUME 9.4 fL (7.4-10.4); MONOCYTES % (AUTO) 12 % (2-9); NEUTROPHILS % (AUTO) 61 % (42-75); PLATELET COUNT 86 x10^3/uL (130-400); RED BLOOD COUNT 3.53 x10^6/uL (3.82-5.3); RED CELL DISTRIBUTION WIDTH 35.8 % (9.6-15.2)
[2020-03-21 06:24] LABS: MD SCAN
[2020-03-21] MEDS: IRON SUCROSE COMPLEX 100MG/5ML IV SCH (08:16)
[2020-03-21] MEDS: RIFAXIMIN 550 MG TABLET PO SCH ×2 (08:17→20:54)
[2020-03-21] MEDS: FUROSEMIDE 40 MG TABLET PO SCH (08:17)
[2020-03-21] MEDS: FERROUS SULFATE 325 MG TABLET PO SCH ×2 (08:17→15:53)
[2020-03-21] MEDS: SPIRONOLACTONE 50 MG TABLET PO SCH ×4 (08:17→20:54)
[2020-03-21] MEDS: NABUMETONE 500 MG TABLET PO SCH ×2 (08:17→20:53)
[2020-03-21] MEDS: LACTULOSE 20 GM/30 ML UDC PO SCH ×3 (08:21→20:54)
[2020-03-21] MEDS ORDERED: FUROSEMIDE 20 MG TABLET PO ONE (10:45)
[2020-03-21] MEDS: MIDODRINE 5 MG TABLET PO SCH ×3 (11:56→20:53)
[2020-03-21] MEDS ORDERED: ALBUMIN HUMAN 25% 100 ML IV PRN (16:30)
[2020-03-22 01:42] VITALS: BP 98/61
[2020-03-22 05:58] LABS: BASOPHILS % (AUTO) 1 % (0-1); EOSINOPHILS % (AUTO) 5 % (1-7); LYMPHOCYTES % (AUTO) 19 % (22-44); MEAN CORPUSCULAR HEMOGLOBIN 25.1 pg (27.0-34.8); MEAN CORPUSCULAR HGB CONC 31.9 g/dL (32.4-35.8); MEAN PLATELET VOLUME 9.2 fL (7.4-10.4); MONOCYTES % (AUTO) 11 % (2-9); NEUTROPHILS % (AUTO) 64 % (42-75); PLATELET COUNT 85 x10^3/uL (130-400); RED BLOOD COUNT 3.44 x10^6/uL (3.82-5.3); RED CELL DISTRIBUTION WIDTH 37.7 % (9.6-15.2)
[2020-03-22 06:06] LABS: ANION GAP 3 mmol/L (5-15); CHLORIDE 109 mmol/L (98-107)
[2020-03-22 06:09] LABS: CREATININE 0.51 mg/dL (0.55-1.02)
[2020-03-22 06:51] LABS: MD MORPH REVIEW ONLY
[2020-03-22 06:53] LABS: <PLATELET ESTIMATE> DECREASED; <PLT MORPHOLOGY> NORMAL PLT MORPH; ANISOCYTOSIS 2+; ECHINOCYTES 1+; HYPOCHROMIA 2+; MICROCYTOSIS 2+; OVALOCYTES 1+; POLYCHROMASIA 1+
[2020-03-22 06:54] LABS: TEAR DROPS 1+
[2020-03-22 07:25] VITALS: BP 95/55
[2020-03-22] MEDS ORDERED: LIDOCAINE 1%, 10ML ONE (08:55)
[2020-03-22] MEDS: SPIRONOLACTONE 50 MG TABLET PO SCH ×3 (08:57→20:08)
[2020-03-22] MEDS: NABUMETONE 500 MG TABLET PO SCH ×2 (08:57→20:08)
[2020-03-22] MEDS: FUROSEMIDE 20 MG TABLET PO SCH (08:57)
[2020-03-22] MEDS: RIFAXIMIN 550 MG TABLET PO SCH ×2 (08:58→20:08)
[2020-03-22] MEDS: MIDODRINE 5 MG TABLET PO SCH ×3 (08:59→20:09)
[2020-03-22] MEDS: FERROUS SULFATE 325 MG TABLET PO SCH ×2 (08:59→16:15)
[2020-03-22] MEDS: IRON SUCROSE COMPLEX 100MG/5ML IV SCH (08:59)
[2020-03-22] MEDS: LACTULOSE 20 GM/30 ML UDC PO SCH ×3 (09:00→20:14)
[2020-03-22 13:37] VITALS: BP 102/66
[2020-03-22 19:54] VITALS: BP 100/67
[2020-03-23 02:35] VITALS: BP 103/68
[2020-03-23 07:07] VITALS: BP 95/57
[2020-03-23] MEDS: RIFAXIMIN 550 MG TABLET PO SCH ×2 (08:28→20:43)
[2020-03-23] MEDS: MIDODRINE 5 MG TABLET PO SCH ×3 (08:28→20:45)
[2020-03-23] MEDS: NABUMETONE 500 MG TABLET PO SCH ×2 (08:28→20:42)
[2020-03-23] MEDS: SPIRONOLACTONE 50 MG TABLET PO SCH ×3 (08:29→20:43)
[2020-03-23] MEDS: IRON SUCROSE COMPLEX 100MG/5ML IV SCH (08:29)
[2020-03-23] MEDS: FERROUS SULFATE 325 MG TABLET PO SCH ×2 (08:29→16:43)
[2020-03-23] MEDS: FUROSEMIDE 20 MG TABLET PO SCH (08:29)
[2020-03-23] MEDS: LACTULOSE 20 GM/30 ML UDC PO SCH ×3 (08:36→20:45)
[2020-03-23 10:57] LABS: CALCIUM 9.2 mg/dL (8.5-10.1); CHLORIDE 107 mmol/L (98-107); CREATININE 0.64 mg/dL (0.55-1.02)
[2020-03-23 11:23] LABS: ANION GAP 4 mmol/L (5-15)
[2020-03-23 13:24] VITALS: BP 111/70
[2020-03-23 19:29] VITALS: BP 104/67
[2020-03-24 01:19] VITALS: BP 107/61
[2020-03-24 07:39] VITALS: BP 92/48
[2020-03-24 08:18] VITALS: BP 102/65
[2020-03-24] MEDS: NABUMETONE 500 MG TABLET PO SCH (08:19)
[2020-03-24] MEDS: FUROSEMIDE 20 MG TABLET PO SCH (08:20)
[2020-03-24] MEDS: SPIRONOLACTONE 50 MG TABLET PO SCH ×3 (08:20→20:52)
[2020-03-24] MEDS: RIFAXIMIN 550 MG TABLET PO SCH ×2 (08:20→20:51)
[2020-03-24] MEDS: IRON SUCROSE COMPLEX 100MG/5ML IV SCH (08:21)
[2020-03-24] MEDS: MIDODRINE 5 MG TABLET PO SCH ×3 (08:21→20:52)
[2020-03-24] MEDS: FERROUS SULFATE 325 MG TABLET PO SCH ×2 (08:21→17:16)
[2020-03-24] MEDS: ONDANSETRON ODT 4 MG PO PRN ×2 (08:37→20:51)
[2020-03-24] MEDS: LACTULOSE 20 GM/30 ML UDC PO SCH ×3 (09:00→20:52)
[2020-03-24] MEDS ORDERED: PROMETHAZINE 25 MG/ML, 1ML IM PRN (09:00)
[2020-03-24 12:58] VITALS: BP 107/66
[2020-03-24 20:08] VITALS: BP 130/82
[2020-03-25 01:38] VITALS: BP 98/61
[2020-03-25 06:53] VITALS: BP 98/57
[2020-03-25] MEDS: FERROUS SULFATE 325 MG TABLET PO SCH (08:45)
[2020-03-25] MEDS: IRON SUCROSE COMPLEX 100MG/5ML IV SCH (08:45)
[2020-03-25] MEDS: RIFAXIMIN 550 MG TABLET PO SCH (08:45)
[2020-03-25] MEDS: MIDODRINE 5 MG TABLET PO SCH (08:46)
[2020-03-25] MEDS: FUROSEMIDE 20 MG TABLET PO SCH (08:46)
[2020-03-25] MEDS: LACTULOSE 20 GM/30 ML UDC PO SCH ×2 (08:46→08:48)
[2020-03-25] MEDS: SPIRONOLACTONE 50 MG TABLET PO SCH (08:46)
[2020-03-25] MEDS ORDERED: SPIR25TA5 PO (09:44)
[2020-03-25] MEDS ORDERED: RIFA550T4 PO (09:44)
[2020-03-25] MEDS ORDERED: HYDR-826 PO (09:44)
[2020-03-25] MEDS ORDERED: FURO40TA6 PO (09:44)
[2020-03-25] MEDS ORDERED: TRAM50TA2 PO (09:44)
[2020-03-25] MEDS ORDERED: MIDO5TAB9 PO (09:44)
[2020-03-25] MEDS ORDERED: FERR-51 PO (09:44)
[2020-03-25] MEDS ORDERED: ONDA4TAB13 PO (09:51)
[2020-03-25] MEDS: ONDANSETRON ODT 4 MG PO PRN (11:11)
[2020-03-25 12:38] VITALS: BP 104/65
== END 2020-03-25 14:00 | disposition home or self-care (01) | DRG 433 ==
LOC: ED 18:12 → EDIP 21:38 → 3N 23:29 → UNDODISIN 03-16 16:00 → 3N 03-23 21:06
PROVIDERS: ADMIT Family Medicine; ATTEND Hospitalist
PROC: 0W9G3ZZ Drainage of Peritoneal Cavity, Percutaneous Approach (ICD-10-PCS; principal; 2020-03-13)
PROC: 30233N1 Transfusion of Nonautologous Red Blood Cells into Peripheral Vein, Percutaneous Approach (ICD-10-PCS; 2020-03-14)
PROC: 06L38CZ Occlusion of Esophageal Vein with Extraluminal Device, Via Natural or Artificial Opening Endoscopic (ICD-10-PCS; 2020-03-18)
PROC: 0W9G3ZZ Drainage of Peritoneal Cavity, Percutaneous Approach (ICD-10-PCS; 2020-03-18)
PROC: 0W9G3ZZ Drainage of Peritoneal Cavity, Percutaneous Approach (ICD-10-PCS; 2020-03-22)
DX: K70.31 Alcoholic cirrhosis of liver with ascites (principal); I85.10 Secondary esophageal varices without bleeding; Z20.822 Contact with and (suspected) exposure to COVID-19; K72.90 Hepatic failure, unspecified without coma; D50.9 Iron deficiency anemia, unspecified; D69.6 Thrombocytopenia, unspecified; F10.21 Alcohol dependence, in remission; F32.9 Major depressive disorder, single episode, unspecified; F41.9 Anxiety disorder, unspecified; K80.20 Calculus of gallbladder without cholecystitis without obstruction; M62.84 Sarcopenia; I95.89 Other hypotension; Z79.899 Other long term (current) drug therapy; Z81.1 Family history of alcohol abuse and dependence; Z79.891 Long term (current) use of opiate analgesic; Z79.01 Long term (current) use of anticoagulants
CPT/HCPCS: 36415; 82042; 89051; 96365; 96375; 99285; J3490; 49083; 76705; 80048; 80053; 80074; 82105; 82140; 82272; 82728; 83540; 83550; 83605; 83735; 84100; 85018; 85025; 85610; 85730; 86850; 86900; 86923; 87015; 87040; 87070; 87075; 87102; 87116; 87205; 87206; 87635; 88112; 88305; G0378; J1756; J1885; J2704; J3480; J7120; P9045; P9047; Q0162; J0330; J2270; J7040; P9016; Q0177

== ENCOUNTER 2020-05-03 17:48 | Emergency (ER) | payer OTHER ==
[~2020-05-03] VITALS: Ht 167.6 cm; Wt 80.0 kg
[~2020-05-03 17:48] MED LIST changes: +FERR-51 PO; +MIDO5TAB9 PO; +ONDA4TAB13 PO; +RIFA550T4 PO; +SPIR25TA5 PO; +TRAM50TA2 PO
[2020-05-03] MEDS ORDERED: SODIUM CHLORIDE FLUSH 10ML SYR IVF ONE (18:00)
--- NOTE | 2020-05-03 18:02 | NUR ---
PT BIB EMS FOR ABD DISTENTION, PAIN AND SOB. "JADA HAD MY ABD DRAIND BEFORE IM NOT SURE WHEN THE LAST TIME WAS". PT ABD SEVERLY DISTENDED AND FIRM. EKG COMPLETE. MD IS BEDSID FOR ASSESSMENT.
[2020-05-03 18:29] LABS: BASOPHILS % (AUTO) 1 % (0-1); EOSINOPHILS % (AUTO) 2 % (1-7); LYMPHOCYTES % (AUTO) 12 % (22-44); MEAN CORPUSCULAR HEMOGLOBIN 30.2 pg (27.0-34.8); MEAN CORPUSCULAR HGB CONC 32.7 g/dL (32.4-35.8); MEAN PLATELET VOLUME 8.8 fL (7.4-10.4); MONOCYTES % (AUTO) 13 % (2-9); NEUTROPHILS % (AUTO) 72 % (42-75); PLATELET COUNT 137 x10^3/uL (130-400); RED BLOOD COUNT 3.91 x10^6/uL (3.82-5.3); RED CELL DISTRIBUTION WIDTH 16.4 % (9.6-15.2)
[2020-05-03 18:33] LABS: MD NO
[2020-05-03 18:38] LABS: ALBUMIN 2.7 g/dL (3.4-5.0); ANION GAP 6 mmol/L (5-15); CALCIUM 9.2 mg/dL (8.5-10.1); CHLORIDE 101 mmol/L (98-107)
--- NOTE | 2020-05-03 18:42 | NUR ---
PT SEVERIANO YOO. AWAITING IR.
[2020-05-03 18:43] LABS: ALANINE AMINOTRANSFERASE 34 U/L (12-78); ALKALINE PHOSPHATASE 193 U/L (45-117); BILIRUBIN,TOTAL 1.8 mg/dL (0.2-1.0); CREATININE 1.09 mg/dL (0.55-1.02); TOTAL PROTEIN 5.8 g/dL (6.4-8.2)
[2020-05-03 19:02] LABS: INTERNATIONAL NORMALIZED RATIO 1.22 (0.93-1.1)
--- NOTE | 2020-05-03 19:29 | NUR ---
PT WENT TO IR FOR PARACENTESIS
[2020-05-03] MEDS ORDERED: LIDOCAINE 1%, 10ML ONE (19:32)
--- NOTE | 2020-05-03 19:50 | NUR ---
PT REPORT FROM AUBREY LARSEN. PT CURRENTLY IN IR. PT CARE TO BE ASSUMED.
--- NOTE | 2020-05-03 20:22 | NUR ---
RETURNED FROM IR, STATES ABD FEELS A LITTLE BETTER.
[2020-05-03] MEDS ORDERED: MIDO5TAB4 PO (20:28)
[2020-05-03] MEDS ORDERED: LACT10SO2 PO (20:28)
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
--- NOTE | 2020-05-03 21:17 | NUR ---
CRM DYNAMICS DEVELOPER CALLED TO SAY HE WAS MAKING A CORRECTION TO THE PARACENTESIS FLUID RESULT.
--- NOTE | 2020-05-03 21:45 | NUR ---
DR LAN AT TO DISCUSS POC
--- NOTE | 2020-05-03 22:17 | NUR ---
PATIENT SITTING ON SIDE OF BED IN NAD. VS REMAIN UNCHANGED SINCE ARRIVAL TO ER. PATIENT REPORTS LESS PRESSURE IN ABDOMEN. ALL PERSONAL BELONGINGS WITH PATIENT ON DEPARTURE. NO IV DURING DC. STEADY GAIT TO LOBBY
[2020-05-03 22:18] VITALS: BP 115/74
== END 2020-05-03 22:21 | disposition home or self-care (01) ==
LOC: ED 18:09
DX: K70.31 Alcoholic cirrhosis of liver with ascites (principal); R06.02 Shortness of breath; R00.0 Tachycardia, unspecified; F17.200 Nicotine dependence, unspecified, uncomplicated
CPT/HCPCS: 36415; 49083; 80053; 82042; 83615; 83690; 83880; 85025; 85610; 85730; 87070; 87205; 88112; 88305; 89051; 93005; 99285; J3490

== ENCOUNTER 2020-05-14 12:37 | Inpatient (IN) | payer OTHER ==
[~2020-05-14] VITALS: Ht 165.1 cm; Wt 57.5 kg
[~2020-05-14 12:37] MED LIST changes: +LACT10SO2 PO; +MIDO5TAB4 PO
--- NOTE | 2020-05-14 12:53 | NUR ---
Bib by ann marie fragoso from home in [place], [place]. called as patient abd quite swollen again and patient in immense pain Seen here for same 2 weeks ago and had a paracentesis "of 9.5 liters" Denies viral sxs, no fever/chills abd massively distended/ +4 edema to legs, mucous membranes dry VSS on monitor technician no jaundice has not had any etoh in 2 years
[2020-05-14] MEDS ORDERED: SODIUM CHLORIDE FLUSH 10ML SYR IVF ONE (13:00)
[2020-05-14] MEDS ORDERED: PLEASE ENTER HEIGHT AND WEIGHT MC SCH (13:00)
[2020-05-14] MEDS ORDERED: SODIUM CHLORIDE 0.9% 1,000ML IVBOLUS ONE (13:00)
--- NOTE | 2020-05-14 13:10 | NUR ---
report to eduar montez
--- NOTE | 2020-05-14 13:10 | NUR ---
lab drawn from ems piv cc ua collected-sent for analysis per protocol
[2020-05-14] MEDS ORDERED: LIDOCAINE 1%, 10ML ONE (13:24)
[2020-05-14 13:27] LABS: MICROSCOPIC INDICATED
[2020-05-14 13:35] LABS: ALANINE AMINOTRANSFERASE 39 U/L (12-78); ALBUMIN 2.9 g/dL (3.4-5.0); ANION GAP 7 mmol/L (5-15); CALCIUM 10.3 mg/dL (8.5-10.1); CHLORIDE 100 mmol/L (98-107); CREATININE 0.84 mg/dL (0.55-1.02)
--- NOTE | 2020-05-14 13:35 | NUR ---
Pt in IR at this time.
[2020-05-14 13:38] LABS: ALKALINE PHOSPHATASE 189 U/L (45-117); BILIRUBIN,TOTAL 2.5 mg/dL (0.2-1.0); TOTAL PROTEIN 6.3 g/dL (6.4-8.2)
[2020-05-14 13:39] LABS: BASOPHILS % (AUTO) 1 % (0-1); EOSINOPHILS % (AUTO) 0 % (1-7); LYMPHOCYTES % (AUTO) 10 % (22-44); MEAN CORPUSCULAR HEMOGLOBIN 30.3 pg (27.0-34.8); MEAN CORPUSCULAR HGB CONC 32.9 g/dL (32.4-35.8); MEAN PLATELET VOLUME 8.8 fL (7.4-10.4); MONOCYTES % (AUTO) 8 % (2-9); NEUTROPHILS % (AUTO) 80 % (42-75); PLATELET COUNT 124 x10^3/uL (130-400); RED BLOOD COUNT 4.13 x10^6/uL (3.82-5.3); RED CELL DISTRIBUTION WIDTH 15.7 % (9.6-15.2)
[2020-05-14 13:40] LABS: INTERNATIONAL NORMALIZED RATIO 1.22 (0.93-1.1)
[2020-05-14 13:41] LABS: MD NO
--- NOTE | 2020-05-14 14:08 | NUR ---
Pt in IR at this time.
--- NOTE | 2020-05-14 14:34 | NUR ---
Pt in IR at this time.
--- NOTE | 2020-05-14 15:03 | NUR ---
Pt back from IR, A&O x4, connected to all monitors, call light in reach, positioned for comfort.
[2020-05-14] MEDS: ALBUMIN HUMAN 25% 100 ML IV SCH ×2 (15:37→16:15)
--- NOTE | 2020-05-14 15:41 | NUR ---
Albumin administered per MAR
--- NOTE | 2020-05-14 16:00 | NUR ---
Pt denies pain after IR, no other requests at this time.
--- NOTE | 2020-05-14 17:43 | NUR ---
Atempted to ambulate pt, pt unable to take more than 3 steps without reporting dizziness. Assisted back to bed, positioned for comfort. Provider notified.
--- NOTE | 2020-05-14 17:55 | NUR ---
Meal tray ordered for pt.
[2020-05-14] MEDS ORDERED: BISACODYL 10 MG SUPP PR PRN (18:30)
[2020-05-14] MEDS ORDERED: POLYETHYLENE GLYCOL 17 GM PACKET PO PRN (18:30)
[2020-05-14] MEDS ORDERED: ONDANSETRON ODT 4 MG PO PRN ×2 (18:30)
--- NOTE | 2020-05-14 18:30 | NUR ---
Pt sat up in bed and positioned to eat meal.
--- NOTE | 2020-05-14 18:58 | NUR ---
Report given to Edith BURGOS
--- NOTE | 2020-05-14 19:21 | NUR ---
REPORT GIVEN TO AUBREY DOBSON
[2020-05-14] MEDS: LACTULOSE 20 GM/30 ML UDC PO SCH (21:00)
[2020-05-14] MEDS: MIDODRINE 5 MG TABLET PO SCH (21:40)
[2020-05-14] MEDS: RIFAXIMIN 550 MG TABLET PO SCH (21:40)
[2020-05-14] MEDS: CEFTRIAXONE PMX 1GM/50ML 50 ML IV SCH (21:40)
[2020-05-14] MEDS: SPIRONOLACTONE 50 MG TABLET PO SCH (21:40)
[2020-05-14] MEDS: SODIUM CHLORIDE FLUSH 10ML SYR IVF SCH (21:41)
[2020-05-14 22:49] VITALS: BP 105/69
[2020-05-15 03:59] VITALS: BP 96/55
[2020-05-15 04:45] VITALS: BP 96/55
[2020-05-15 04:57] LABS: BASOPHILS % (AUTO) 2 % (0-1); EOSINOPHILS % (AUTO) 3 % (1-7); LYMPHOCYTES % (AUTO) 20 % (22-44); MEAN CORPUSCULAR HEMOGLOBIN 30.5 pg (27.0-34.8); MEAN PLATELET VOLUME 8.9 fL (7.4-10.4); MONOCYTES % (AUTO) 12 % (2-9); NEUTROPHILS % (AUTO) 63 % (42-75); PLATELET COUNT 100 x10^3/uL (130-400); RED CELL DISTRIBUTION WIDTH 16.1 % (9.6-15.2)
[2020-05-15 05:04] LABS: MD NO
[2020-05-15 05:07] LABS: ALBUMIN 2.9 g/dL (3.4-5.0); ANION GAP 5 mmol/L (5-15); CALCIUM 9.4 mg/dL (8.5-10.1); CHLORIDE 103 mmol/L (98-107)
[2020-05-15 05:10] LABS: ALANINE AMINOTRANSFERASE 29 U/L (12-78); ALKALINE PHOSPHATASE 138 U/L (45-117); CREATININE 0.69 mg/dL (0.55-1.02); TOTAL PROTEIN 5.3 g/dL (6.4-8.2)
[2020-05-15 07:40] VITALS: BP 98/62
[2020-05-15] MEDS: LACTULOSE 20 GM/30 ML UDC PO SCH ×3 (08:37→21:00)
[2020-05-15] MEDS: RIFAXIMIN 550 MG TABLET PO SCH ×2 (08:38→21:27)
[2020-05-15] MEDS: SENNA/DOCUSATE TABLET PO SCH (08:38)
[2020-05-15] MEDS: SPIRONOLACTONE 50 MG TABLET PO SCH ×3 (08:39→21:27)
[2020-05-15] MEDS: FERROUS SULFATE 325 MG TABLET PO SCH ×2 (08:39→16:37)
[2020-05-15] MEDS: SODIUM CHLORIDE FLUSH 10ML SYR IVF SCH ×2 (08:39→21:28)
[2020-05-15] MEDS: MIDODRINE 5 MG TABLET PO SCH ×3 (08:39→21:28)
[2020-05-15] MEDS: FUROSEMIDE 20 MG TABLET PO SCH (08:39)
[2020-05-15 12:18] VITALS: BP 105/68
[2020-05-15] MEDS: POTASSIUM CHLORIDE 20 MEQ TAB.ER.PRT PO SCH (16:37)
[2020-05-15 19:31] VITALS: BP 103/70
[2020-05-15] MEDS: CEFTRIAXONE PMX 1GM/50ML 50 ML IV SCH (21:27)
[2020-05-16 01:52] VITALS: BP 126/73
[2020-05-16 05:58] LABS: BASOPHILS % (AUTO) 2 % (0-1); EOSINOPHILS % (AUTO) 3 % (1-7); LYMPHOCYTES % (AUTO) 21 % (22-44); MEAN CORPUSCULAR HEMOGLOBIN 30.5 pg (27.0-34.8); MEAN CORPUSCULAR HGB CONC 33.2 g/dL (32.4-35.8); MEAN PLATELET VOLUME 8.8 fL (7.4-10.4); MONOCYTES % (AUTO) 13 % (2-9); NEUTROPHILS % (AUTO) 60 % (42-75); PLATELET COUNT 108 x10^3/uL (130-400); RED CELL DISTRIBUTION WIDTH 16.5 % (9.6-15.2)
[2020-05-16 06:05] LABS: ALBUMIN 2.6 g/dL (3.4-5.0); ANION GAP 6 mmol/L (5-15); CALCIUM 9.2 mg/dL (8.5-10.1); CHLORIDE 100 mmol/L (98-107)
[2020-05-16 06:07] LABS: CREATININE 0.65 mg/dL (0.55-1.02)
[2020-05-16 06:34] LABS: ANISOCYTOSIS 1+; MD MORPH REVIEW ONLY; OVALOCYTES 1+; POLYCHROMASIA 1+
[2020-05-16 06:36] LABS: <PLATELET ESTIMATE> DECREASED; <PLT MORPHOLOGY> NORMAL PLT MORPH
[2020-05-16 07:28] VITALS: BP 101/64
[2020-05-16] MEDS ORDERED: POTASSIUM PHOSPHATE 44 MEQ in SODIUM CHLORIDE 0.9% 500 ML IV ONE (08:30)
[2020-05-16] MEDS: LACTULOSE 20 GM/30 ML UDC PO SCH ×3 (09:00→20:56)
[2020-05-16] MEDS: SENNA/DOCUSATE TABLET PO SCH (09:00)
[2020-05-16] MEDS ORDERED: LIDOCAINE 1%, 10ML ONE (09:08)
[2020-05-16] MEDS: FERROUS SULFATE 325 MG TABLET PO SCH ×2 (09:36→17:38)
[2020-05-16] MEDS: POTASSIUM CHLORIDE 20 MEQ TAB.ER.PRT PO SCH ×2 (09:36→17:38)
[2020-05-16] MEDS: SODIUM CHLORIDE FLUSH 10ML SYR IVF SCH ×2 (09:37→21:00)
[2020-05-16] MEDS: SPIRONOLACTONE 50 MG TABLET PO SCH ×3 (09:37→20:53)
[2020-05-16] MEDS: FUROSEMIDE 20 MG TABLET PO SCH (09:38)
[2020-05-16] MEDS: MIDODRINE 5 MG TABLET PO SCH ×3 (09:38→20:53)
[2020-05-16] MEDS: RIFAXIMIN 550 MG TABLET PO SCH ×2 (09:38→20:52)
[2020-05-16 12:46] VITALS: BP 101/69
[2020-05-16] MEDS ORDERED: OXYcodone IR 5MG TABLET PO PRN (13:00)
[2020-05-16] MEDS: OXYcodone IR 5MG TABLET PO PRN ×2 (13:20→23:00)
[2020-05-16 18:48] VITALS: BP 96/63
[2020-05-16 20:54] VITALS: BP 104/70
[2020-05-16] MEDS: CEFTRIAXONE PMX 1GM/50ML 50 ML IV SCH (21:07)
[2020-05-17 01:09] VITALS: BP 103/63
[2020-05-17 06:00] LABS: ALBUMIN 2.6 g/dL (3.4-5.0); ANION GAP 5 mmol/L (5-15); CHLORIDE 101 mmol/L (98-107)
[2020-05-17 06:01] LABS: CREATININE 0.63 mg/dL (0.55-1.02)
[2020-05-17 06:52] VITALS: BP 99/61
[2020-05-17 07:24] LABS: BASOPHILS % (AUTO) 2 % (0-1); EOSINOPHILS % (AUTO) 4 % (1-7); LYMPHOCYTES % (AUTO) 16 % (22-44); MEAN CORPUSCULAR HEMOGLOBIN 30.4 pg (27.0-34.8); MEAN CORPUSCULAR HGB CONC 32.9 g/dL (32.4-35.8); MEAN PLATELET VOLUME 8.9 fL (7.4-10.4); MONOCYTES % (AUTO) 10 % (2-9); NEUTROPHILS % (AUTO) 69 % (42-75); PLATELET COUNT 125 x10^3/uL (130-400); RED BLOOD COUNT 3.72 x10^6/uL (3.82-5.3); RED CELL DISTRIBUTION WIDTH 16.5 % (9.6-15.2)
[2020-05-17 07:34] LABS: MD NO
[2020-05-17] MEDS: FUROSEMIDE 20 MG TABLET PO SCH (08:49)
[2020-05-17] MEDS: MIDODRINE 5 MG TABLET PO SCH (08:50)
[2020-05-17] MEDS: SPIRONOLACTONE 50 MG TABLET PO SCH (08:50)
[2020-05-17] MEDS: FERROUS SULFATE 325 MG TABLET PO SCH (08:51)
[2020-05-17] MEDS: SODIUM CHLORIDE FLUSH 10ML SYR IVF SCH (08:52)
[2020-05-17] MEDS: SENNA/DOCUSATE TABLET PO SCH (08:53)
[2020-05-17] MEDS: LACTULOSE 20 GM/30 ML UDC PO SCH (08:53)
[2020-05-17] MEDS: RIFAXIMIN 550 MG TABLET PO SCH (08:53)
== END 2020-05-17 15:45 | disposition home or self-care (01) | DRG 433 ==
LOC: ED 13:11 → EDIP 18:09 → 3N 21:00
PROVIDERS: ADMIT Family Medicine; ATTEND Family Medicine
PROC: 0W9G3ZZ Drainage of Peritoneal Cavity, Percutaneous Approach (ICD-10-PCS; principal; 2020-05-14)
PROC: 0W9G3ZZ Drainage of Peritoneal Cavity, Percutaneous Approach (ICD-10-PCS; 2020-05-16)
DX: K70.31 Alcoholic cirrhosis of liver with ascites (principal); N39.0 Urinary tract infection, site not specified; D68.9 Coagulation defect, unspecified; E87.1 Hypo-osmolality and hyponatremia; Z66 Do not resuscitate; F32.9 Major depressive disorder, single episode, unspecified; F41.9 Anxiety disorder, unspecified; F17.210 Nicotine dependence, cigarettes, uncomplicated; E87.5 Hyperkalemia; D69.6 Thrombocytopenia, unspecified; E87.6 Hypokalemia; E83.52 Hypercalcemia; F10.10 Alcohol abuse, uncomplicated; E88.09 Other disorders of plasma-protein metabolism, not elsewhere classified; Z90.89 Acquired absence of other organs; Z81.1 Family history of alcohol abuse and dependence; Z82.49 Family history of ischemic heart disease and other diseases of the circulatory system; Z79.899 Other long term (current) drug therapy; Y90.9 Presence of alcohol in blood, level not specified
CPT/HCPCS: 36415; 96374; 99285; J3490; 49083; 80053; 80069; 81001; 83690; 83735; 85025; 85610; 87086; G0378; J0696; P9047; J7030; J7040; Q0177

== ENCOUNTER 2020-06-04 20:51 | Emergency (ER) | payer OTHER ==
[~2020-06-04] VITALS: Ht 165.1 cm; Wt 68.6 kg
[2020-06-04] MEDS ORDERED: LIDOCAINE-MPF 1%, 5ML ONE (21:07)
[2020-06-04] MEDS ORDERED: ONDANSETRON ODT 4 MG PO ONE (21:30)
[2020-06-04] MEDS ORDERED: LIDOCAINE 1%, 10ML INFIL ONE (21:30)
[2020-06-04] MEDS ORDERED: ONDANSETRON ODT 4 MG ONE (21:36)
[2020-06-04 21:59] LABS: BASOPHILS % (AUTO) 1 % (0-1); EOSINOPHILS % (AUTO) 2 % (1-7); LYMPHOCYTES % (AUTO) 11 % (22-44); MEAN CORPUSCULAR HEMOGLOBIN 30.6 pg (27.0-34.8); MEAN CORPUSCULAR HGB CONC 33.3 g/dL (32.4-35.8); MEAN PLATELET VOLUME 8.7 fL (7.4-10.4); MONOCYTES % (AUTO) 10 % (2-9); NEUTROPHILS % (AUTO) 75 % (42-75); PLATELET COUNT 122 x10^3/uL (130-400); RED BLOOD COUNT 4.13 x10^6/uL (3.82-5.3); RED CELL DISTRIBUTION WIDTH 17.2 % (9.6-15.2)
--- NOTE | 2020-06-04 21:59 | NUR ---
PT HERE FOR ACITIES. VSS. PT MEDICATED. PT TO HAVE A PARACENTISIS. PT HAS NO OTHER NEEDS. CALL LIGHT IN REACH
[2020-06-04 22:09] LABS: ALANINE AMINOTRANSFERASE 39 U/L (12-78); ALBUMIN 2.7 g/dL (3.4-5.0); ANION GAP 6 mmol/L (5-15); CALCIUM 9.9 mg/dL (8.5-10.1); CHLORIDE 100 mmol/L (98-107); CREATININE 1.32 mg/dL (0.55-1.02)
[2020-06-04 22:11] LABS: ALKALINE PHOSPHATASE 231 U/L (45-117); BILIRUBIN,TOTAL 1.9 mg/dL (0.2-1.0); MD NO; TOTAL PROTEIN 6.1 g/dL (6.4-8.2)
--- NOTE | 2020-06-04 22:27 | NUR ---
PA AT BEDSIDE FOR PARACENTISIS
--- NOTE | 2020-06-04 23:44 | NUR ---
PT TO BE DISCHARGED. CALLED AND WILL SEND SOMEONE TO COME AND PICK HER UP
[2020-06-04 23:57] VITALS: BP 103/72
== END 2020-06-04 23:58 | disposition home or self-care (01) ==
LOC: ED 22:42
DX: K70.31 Alcoholic cirrhosis of liver with ascites (principal); R10.84 Generalized abdominal pain; K72.10 Chronic hepatic failure without coma
CPT/HCPCS: 36415; 49083; 80053; 85025; 99285; Q0162

== ENCOUNTER 2020-06-10 01:10 | Inpatient (IN) | payer OTHER ==
[~2020-06-10] VITALS: Ht 160 cm; Wt 61.0 kg
[~2020-06-10 01:10] MED LIST changes: +NABU500T11 PO; -NABU500T7 PO
[2020-06-10] MEDS ORDERED: LIDOCAINE 1%, 2ML INFIL ONE (01:30)
[2020-06-10] MEDS ORDERED: SODIUM CHLORIDE 0.9% 1,000ML IVBOLUS ONE (01:30)
[2020-06-10] MEDS ORDERED: ONDANSETRON 2MG/ML, 2ML IVPush ONE (01:30)
[2020-06-10] MEDS ORDERED: SODIUM CHLORIDE FLUSH 10ML SYR IVF ONE (01:30)
[2020-06-10] MEDS ORDERED: IBUPROFEN 600 MG TABLET PO ONE (01:30)
[2020-06-10] MEDS ORDERED: MORPHINE SULFATE 4 MG/ML, 1ML IVPush PRN (01:30)
--- NOTE | 2020-06-10 01:39 | NUR ---
Patient BIBA for AMS. Family called because patient "hasn't been acting right" for approx 4 hours. Patient has a hx of liver failure, ascites, and an abd hernia. Patient is AAOx1 to self. Abd distended and hard. Respirations even and unlabored.
[2020-06-10 01:58] LABS: BASOPHILS % (AUTO) 1 % (0-1); EOSINOPHILS % (AUTO) 2 % (1-7); LYMPHOCYTES % (AUTO) 12 % (22-44); MEAN CORPUSCULAR HEMOGLOBIN 30.8 pg (27.0-34.8); MEAN CORPUSCULAR HGB CONC 33.3 g/dL (32.4-35.8); MEAN PLATELET VOLUME 9.1 fL (7.4-10.4); MONOCYTES % (AUTO) 10 % (2-9); NEUTROPHILS % (AUTO) 76 % (42-75); PLATELET COUNT 154 x10^3/uL (130-400); RED BLOOD COUNT 4.31 x10^6/uL (3.82-5.3); RED CELL DISTRIBUTION WIDTH 17.2 % (9.6-15.2)
[2020-06-10 02:00] LABS: MD NO
[2020-06-10] MEDS ORDERED: LIDOCAINE-MPF 1%, 2ML ONE (02:02)
[2020-06-10] MEDS ORDERED: LIDOCAINE-MPF 1%, 5ML ONE (02:02)
[2020-06-10 02:07] LABS: INTERNATIONAL NORMALIZED RATIO 1.18 (0.93-1.1); PROTHROMBIN TIME 12.6 Seconds (9.6-11.5)
[2020-06-10 02:09] LABS: MICROSCOPIC INDICATED
--- NOTE | 2020-06-10 02:10 | NUR ---
Paracentesis performed; assisted with procedure. 6L fluid.
[2020-06-10 02:13] LABS: ALANINE AMINOTRANSFERASE 38 U/L (12-78); ALBUMIN 2.9 g/dL (3.4-5.0); ANION GAP 8 mmol/L (5-15); CALCIUM 10.3 mg/dL (8.5-10.1); CHLORIDE 96 mmol/L (98-107); CREATININE 2.48 mg/dL (0.55-1.02)
[2020-06-10 02:16] LABS: ALKALINE PHOSPHATASE 215 U/L (45-117); BILIRUBIN,TOTAL 2.9 mg/dL (0.2-1.0); TOTAL PROTEIN 6.3 g/dL (6.4-8.2)
--- NOTE | 2020-06-10 02:50 | NUR ---
Patient in CT.
--- NOTE | 2020-06-10 03:06 | NUR ---
Patient returned from CT. Sleeping in [facility]. Respirations even and unlabored. Awaiting admission bed.
--- NOTE | 2020-06-10 03:27 | NUR ---
Report given to AUBREY Holly. Patient to be transferred to room 482. Enema ordered with lactulose by ERP. Patient to be transported after enema initiated.
[2020-06-10] MEDS ORDERED: LACTULOSE 3.3 GM/5 ML ORAL.SOL RC ONE ×2 (03:30→12:00)
--- NOTE | 2020-06-10 03:39 | NUR ---
Rectal tube inserted for lactulose admin with enema.
[2020-06-10] MEDS ORDERED: OXYC10TA6 PO (03:58)
[2020-06-10] MEDS ORDERED: ALBUMIN HUMAN 25% 100 ML IV ONE (04:00)
[2020-06-10] MEDS ORDERED: LABETALOL 5MG/ML, 20ML IVPush PRN (04:00)
--- NOTE | 2020-06-10 04:03 | NUR ---
Lactulose admin per mar via rectal tube. Tube clamped for retention. Notified AUBREY Holly.
[2020-06-10 04:26] VITALS: BP 100/70
[2020-06-10] MEDS: CEFTRIAXONE 1,000 MG in DEXTROSE 5% 50 ML IVPB SCH (04:30)
[2020-06-10 04:54] LABS: CHLORIDE,URINE RANDOM 18 mmol/L; POTASSIUM,URINE RANDOM 31 mmol/L; SODIUM,URINE RANDOM 9 mmol/L
[2020-06-10] MEDS ORDERED: FURO40TA6 PO (06:41)
[2020-06-10] MEDS ORDERED: FURO20TA3 PO (06:41)
[2020-06-10 08:00] VITALS: BP 89/60
[2020-06-10] MEDS: MIDODRINE 5 MG TABLET PO SCH ×3 (09:08→20:58)
[2020-06-10] MEDS: RIFAXIMIN 550 MG TABLET PO SCH ×2 (09:08→20:58)
[2020-06-10] MEDS: FERROUS SULFATE 325 MG TABLET PO SCH ×2 (09:08→18:25)
[2020-06-10] MEDS: LACTULOSE 20 GM/30 ML UDC PO SCH ×3 (09:21→20:58)
[2020-06-10 10:59] VITALS: BP 94/62
[2020-06-10] MEDS: morphine SULFATE 10 MG/ML, 1ML IVPush PRN ×2 (13:44→21:10)
[2020-06-10 14:15] LABS: CLOSTRIDIUM DIFFICILE ANTIGEN NEGATIVE; CLOSTRIDIUM DIFFICILE TOXIN NEGATIVE (Negative)
[2020-06-10 14:24] VITALS: BP 98/61
[2020-06-10 20:09] VITALS: BP 103/67
[2020-06-11 01:56] VITALS: BP 100/61
[2020-06-11] MEDS: CEFTRIAXONE 1,000 MG in DEXTROSE 5% 50 ML IVPB SCH ×2 (04:08→22:08)
[2020-06-11 04:23] LABS: BASOPHILS % (AUTO) 0 % (0-1); EOSINOPHILS % (AUTO) 2 % (1-7); LYMPHOCYTES % (AUTO) 9 % (22-44); MEAN CORPUSCULAR HEMOGLOBIN 30.2 pg (27.0-34.8); MEAN CORPUSCULAR HGB CONC 32.6 g/dL (32.4-35.8); MEAN PLATELET VOLUME 9.3 fL (7.4-10.4); MONOCYTES % (AUTO) 9 % (2-9); NEUTROPHILS % (AUTO) 80 % (42-75); PLATELET COUNT 106 x10^3/uL (130-400); RED BLOOD COUNT 3.85 x10^6/uL (3.82-5.3); RED CELL DISTRIBUTION WIDTH 17.2 % (9.6-15.2)
[2020-06-11 04:32] LABS: ANION GAP 8 mmol/L (5-15); CALCIUM 10.2 mg/dL (8.5-10.1); CHLORIDE 100 mmol/L (98-107); CREATININE 2.05 mg/dL (0.55-1.02); MD NO
[2020-06-11 07:07] VITALS: BP 95/64
[2020-06-11] MEDS: FERROUS SULFATE 325 MG TABLET PO SCH ×3 (08:00→16:57)
[2020-06-11] MEDS: RIFAXIMIN 550 MG TABLET PO SCH ×2 (08:24→22:02)
[2020-06-11] MEDS: LACTULOSE 20 GM/30 ML UDC PO SCH ×4 (08:24→22:07)
[2020-06-11] MEDS: MIDODRINE 5 MG TABLET PO SCH ×3 (08:24→22:02)
[2020-06-11] MEDS: LACTULOSE 3.3 GM/5 ML ORAL.SOL RC SCH ×2 (09:00→21:58)
[2020-06-11] MEDS ORDERED: LIDOCAINE 1%, 10ML ONE (14:06)
[2020-06-11] MEDS: morphine SULFATE 10 MG/ML, 1ML IVPush PRN ×3 (16:09→23:33)
[2020-06-11 17:46] VITALS: BP 83/54
[2020-06-11] MEDS: ONDANSETRON 2MG/ML, 2ML IVPush PRN (17:57)
[2020-06-11 20:17] VITALS: BP 87/60
[2020-06-12 01:01] VITALS: BP 99/61
[2020-06-12 05:10] LABS: ALANINE AMINOTRANSFERASE 26 U/L (12-78); ALBUMIN 2.6 g/dL (3.4-5.0); ANION GAP 7 mmol/L (5-15); CALCIUM 10.3 mg/dL (8.5-10.1); CHLORIDE 99 mmol/L (98-107); CREATININE 1.56 mg/dL (0.55-1.02)
[2020-06-12 05:12] LABS: ALKALINE PHOSPHATASE 164 U/L (45-117); BILIRUBIN,TOTAL 2.1 mg/dL (0.2-1.0); TOTAL PROTEIN 5.3 g/dL (6.4-8.2)
[2020-06-12 07:10] VITALS: BP 93/61
[2020-06-12] MEDS: FERROUS SULFATE 325 MG TABLET PO SCH ×2 (08:00→16:21)
[2020-06-12] MEDS: RIFAXIMIN 550 MG TABLET PO SCH ×2 (09:00→21:00)
[2020-06-12] MEDS: LACTULOSE 20 GM/30 ML UDC PO SCH ×3 (09:00→21:00)
[2020-06-12] MEDS: LACTULOSE 3.3 GM/5 ML ORAL.SOL RC SCH (09:00)
[2020-06-12] MEDS: MIDODRINE 5 MG TABLET PO SCH ×3 (09:40→22:46)
[2020-06-12] MEDS: morphine SULFATE 10 MG/ML, 1ML IVPush PRN ×4 (11:44→22:58)
[2020-06-12] MEDS: ONDANSETRON 2MG/ML, 2ML IVPush PRN ×2 (14:09→20:07)
[2020-06-13] MEDS: CEFTRIAXONE 1,000 MG in DEXTROSE 5% 50 ML IVPB SCH (02:23)
[2020-06-13] MEDS ORDERED: MORPHINE SULFATE 4 MG/ML, 1ML ONE (04:35)
[2020-06-13] MEDS: morphine SULFATE 10 MG/ML, 1ML IVPush PRN ×4 (04:37→22:23)
[2020-06-13] MEDS: FERROUS SULFATE 325 MG TABLET PO SCH ×2 (08:00→16:26)
[2020-06-13] MEDS: MIDODRINE 5 MG TABLET PO SCH ×3 (08:29→22:22)
[2020-06-13] MEDS: LACTULOSE 20 GM/30 ML UDC PO SCH ×3 (08:33→20:33)
[2020-06-13] MEDS: RIFAXIMIN 550 MG TABLET PO SCH ×2 (08:35→20:33)
[2020-06-13] MEDS ORDERED: LIDOCAINE 1%, 20ML ONE (12:39)
[2020-06-13] MEDS ORDERED: FENTANYL PF 100 MCG/2ML ONE (12:42)
[2020-06-13] MEDS ORDERED: MIDAZOLAM 1 MG/ML, 5ML ONE (12:42)
[2020-06-14] MEDS: morphine SULFATE 10 MG/ML, 1ML IVPush PRN ×4 (02:11→13:40)
[2020-06-14] MEDS: CEFTRIAXONE 1,000 MG in DEXTROSE 5% 50 ML IVPB SCH (04:00)
[2020-06-14] MEDS: FERROUS SULFATE 325 MG TABLET PO SCH (08:00)
[2020-06-14] MEDS: LACTULOSE 20 GM/30 ML UDC PO SCH (08:45)
[2020-06-14] MEDS: RIFAXIMIN 550 MG TABLET PO SCH (08:45)
[2020-06-14] MEDS: MIDODRINE 5 MG TABLET PO SCH (08:52)
== END 2020-06-14 14:09 | disposition hospice, home (50) | DRG 441 ==
LOC: ED 01:38 → EDIP 03:17 → 4EST 04:14 → 4NW 06-12 14:06
PROVIDERS: ADMIT Family Medicine; ATTEND Family Medicine
PROC: 0W9G3ZZ Drainage of Peritoneal Cavity, Percutaneous Approach (ICD-10-PCS; 2020-06-10)
PROC: 0T9B30Z Drainage of Bladder with Drainage Device, Percutaneous Approach (ICD-10-PCS; 2020-06-10)
PROC: 0W9G3ZZ Drainage of Peritoneal Cavity, Percutaneous Approach (ICD-10-PCS; principal; 2020-06-11)
PROC: 0W9G30Z Drainage of Peritoneal Cavity with Drainage Device, Percutaneous Approach (ICD-10-PCS; 2020-06-13)
DX: K72.90 Hepatic failure, unspecified without coma (principal); K76.7 Hepatorenal syndrome; N17.9 Acute kidney failure, unspecified; E86.0 Dehydration; F17.200 Nicotine dependence, unspecified, uncomplicated; K70.31 Alcoholic cirrhosis of liver with ascites; Z51.5 Encounter for palliative care; Z53.20 Procedure and treatment not carried out because of patient's decision for unspecified reasons; Z79.899 Other long term (current) drug therapy
CPT/HCPCS: 36415; 49083; 82042; 84145; 89051; 99291; J3490; 49418; 70450; 71045; 80048; 80053; 81001; 82140; 82436; 82570; 83605; 83615; 83690; 84133; 84300; 84439; 84443; 85025; 85610; 85730; 87040; 87070; 87205; 87324; 93005; 99156; 99157; G0378; J0696; J2250; J2405; J3010; P9047; C1729; J2270; J7030